=== PATIENT | male | born 1980 | race Caucasian/White ===

== ENCOUNTER → 2019-11-09 | Outpatient (CLI) | payer OTHER | LOC: CAT 10:37 | PROVIDERS: ATTEND Internal Medicine Cardiovascular Disease | DX: Z13.6 Encounter for screening for cardiovascular disorders (principal); I25.10 Atherosclerotic heart disease of native coronary artery without angina pectoris; E78.00 Pure hypercholesterolemia, unspecified ==

== ENCOUNTER → 2019-11-09 | Outpatient (CLI) | payer OTHER | LOC: SJCVCIMAG 08:29 | PROVIDERS: ATTEND Internal Medicine Cardiovascular Disease | DX: R07.89 Other chest pain (principal); Z82.49 Family history of ischemic heart disease and other diseases of the circulatory system ==